=== PATIENT | male | born 1945 | race Caucasian/White ===

== ENCOUNTER → 2017-04-13 | Outpatient (CLI) | payer BC ==
[~2017-04-13] MED LIST: ASPEC325 PO; B-COCAP2 PO; CHL4 PO; CHOLTAB3 PO; CMD5 PO; CMD75 PO; CZR50 PO; GLC5 PO; GLC500 PO; LPR25 PO; MELO7.5T5 PO; MULT-506 PO; OMEG10007 PO; PANT40TA PO; TAMS0.4C59 PO; TOLT1TAB PO; cinnamon PO; flax seed oil PO; osteobiflex PO
[2017-04-13 13:30] LABS: MEAN CELL VOLUME 97.8 fL (80-100); MEAN CORPUSCULAR HGB CONC 31.7 g/dl (32-36); RED BLOOD COUNT 3.58 M/uL (4.7-6.1); WHITE BLOOD COUNT 2.73 K/uL (4.8-10.8)
[2017-04-13 13:33] LABS: MEAN PLATELET VOLUME 11.3 fL (7.4-10.4); PLATELET COUNT 75 K/uL (130-400)
[2017-04-13 13:54] LABS: BASO % 0.7 %; BASO ABS # 0.02 K/uL (0-0.2); COMPLETE YES; EOS % 3.3 %; LYMPH % 41.8 %; LYMPH ABS # 1.14 K/uL (1.2-3.4); MONO % 6.2 %
== END | disposition home or self-care (01) ==
LOC: C.LABMFLN 11:25
PROVIDERS: ATTEND Internal Medicine Hematology & Oncology
DX: D61.818 Other pancytopenia (principal)

== ENCOUNTER → 2017-09-10 | Outpatient (CLI) | payer BC ==
[~2017-09-10] MED LIST changes: -TOLT1TAB PO; +TOLT1TAB17 PO
[2017-09-10 18:44] LABS: ALT/SGPT 25 U/L (12-78); BLOOD UREA NITROGEN 21 mg/dl (7-18); CALCIUM 8.7 mg/dl (8.5-10.1); CARBON DIOXIDE 25 mmol/L (21-32); CHLORIDE 105 mmol/L (98-107); CREATININE 1.52 mg/dl (0.60-1.40); GLUCOSE 211 mg/dl (70-99); POTASSIUM 4.6 mmol/L (3.5-5.1); SODIUM 136 mmol/L (136-145)
[2017-09-10 18:46] LABS: ALB/GLOB RATIO 0.8 (0.9-2); ALKALINE PHOSPHATASE 41 U/L (45-117); AST/SGOT 16 U/L (15-37)
[2017-09-10 20:39] LABS: HEMATOCRIT 32.8 % (42-52); MEAN CELL VOLUME 96.5 fL (80-100); MEAN CORPUSCULAR HEMOGLOBIN 31.8 pg (25-34); MEAN CORPUSCULAR HGB CONC 32.9 g/dl (32-36); MEAN PLATELET VOLUME 12.1 fL (7.4-10.4); PLATELET COUNT 71 K/uL (130-400); WHITE BLOOD COUNT 3.04 K/uL (4.8-10.8)
[2017-09-10 20:40] LABS: BASO ABS # 0.08 K/uL (0-0.2); BASOPHIL % 2.7 % (0-2); COMPLETE YES; GIANT PLATELETS 1+; LARGE GRANULAR LYMPH ABSOLUTE 0.54 K/uL; LARGE GRANULAR LYMPHOCYTE % 17.7 %; LYMPHOCYTE % 36.2 %; NEUTROPHILS % 33.6 %; PLT ESTIMATE DECREASED
== END | disposition home or self-care (01) ==
LOC: C.LABMFLN 13:13
PROVIDERS: ATTEND Internal Medicine Hematology & Oncology
DX: D61.818 Other pancytopenia (principal)

== ENCOUNTER → 2017-09-10 | Outpatient (CLI) | payer BC ==
--- NOTE | 2017-09-10 12:42 | DIAGNOSTIC IMAGING REPORT ---
ULTRASOUND OF THE CAROTID ARTERIES CLINICAL HISTORY: CAROTID BRUIT COMPARISON STUDY: None. TECHNIQUE: Real-time, grayscale, and color Doppler sonography of the carotid arteries was performed. Imaging reviewed in the transverse and longitudinal planes. NASCET criteria was utilized for stenosis calcification. FINDINGS: There is moderate atherosclerotic plaque present bilateral. The peak systolic velocity within the right internal carotid artery is 142 cm/sec. The systolic velocity ratio of right internal to common carotid artery is 1.9. The peak systolic velocity within the left internal carotid artery is 189 cm/sec. The systolic velocity ratio left internal to common carotid artery is 1.6. Antegrade flow is seen in the vertebral arteries. The external carotid arteries are patent. Blood pressure in the right arm measured 130 mm/Hg. Blood pressure in the left arm measured 134 mm/Hg. IMPRESSION: Moderate bilateral atheromatous changes. 50-69% bilateral internal carotid artery stenosis by peak systolic velocity criteria. The ICA/CCA peak systolic ratios are not however elevated, a finding which suggests less than 50% stenoses bilaterally. If a more accurate stenosis measurement is desired, CT angiography could be obtained in follow-up. Electronically signed by: Isra Valdez M.D. 09/10/2017 12:40 PM Dictated Date/Time: 09/10/2017 12:36 PM
== END | disposition home or self-care (01) ==
LOC: C.ULTR 11:42
PROVIDERS: ATTEND Family Medicine
DX: I65.23 Occlusion and stenosis of bilateral carotid arteries (principal); R09.89 Other specified symptoms and signs involving the circulatory and respiratory systems

== ENCOUNTER → 2017-11-28 | Outpatient (CLI) | payer BC ==
[2017-11-28 12:19] LABS: HEMATOCRIT 34.4 % (42-52); HEMOGLOBIN 11.4 g/dL (14.0-18.0); MEAN CELL VOLUME 95.3 fL (80-100); MEAN CORPUSCULAR HEMOGLOBIN 31.6 pg (25-34); MEAN CORPUSCULAR HGB CONC 33.1 g/dl (32-36); RED CELL DISTRIBUTION WIDTH CV 14.8 % (11.5-14.5); WHITE BLOOD COUNT 3.08 K/uL (4.8-10.8)
[2017-11-28 12:32] LABS: MEAN PLATELET VOLUME 10.9 fL (7.4-10.4); PLATELET COUNT 92 K/uL (130-400)
[2017-11-28 12:47] LABS: BASO % 0.3 %; BASO ABS # 0.01 K/uL (0-0.2); EOS % 3.2 %; IG# 0.01 K/uL (0.00-0.02); LYMPH % 37.7 %; LYMPH ABS # 1.16 K/uL (1.2-3.4); MONO % 7.1 %; MONO ABS # 0.22 K/uL (0.11-0.59); NEUT % 51.4 %; NEUT ABS # 1.58 K/uL (1.4-6.5)
[2017-11-28 13:05] LABS: ALBUMIN 3.5 gm/dl (3.4-5.0); ALT/SGPT 27 U/L (12-78); BLOOD UREA NITROGEN 22 mg/dl (7-18); CALCIUM 8.7 mg/dl (8.5-10.1); CARBON DIOXIDE 26 mmol/L (21-32); CREATININE 1.47 mg/dl (0.60-1.40); GLUCOSE 250 mg/dl (70-99); POTASSIUM 4.7 mmol/L (3.5-5.1); SODIUM 136 mmol/L (136-145)
[2017-11-28 13:08] LABS: ALKALINE PHOSPHATASE 84 U/L (45-117); AST/SGOT 19 U/L (15-37); TOTAL PROTEIN 7.5 gm/dl (6.4-8.2)
== END | disposition home or self-care (01) ==
LOC: C.LABMFLN 10:11
PROVIDERS: ATTEND Urology
DX: D61.818 Other pancytopenia (principal); C61 Malignant neoplasm of prostate

== ENCOUNTER → 2018-01-23 | Outpatient (CLI) | payer BC ==
[2018-01-23 12:45] LABS: HEMATOCRIT 37.2 % (42-52); HEMOGLOBIN 12.1 g/dL (14.0-18.0); MEAN CELL VOLUME 96.6 fL (80-100); MEAN CORPUSCULAR HEMOGLOBIN 31.4 pg (25-34); MEAN CORPUSCULAR HGB CONC 32.5 g/dl (32-36); RED CELL DISTRIBUTION WIDTH CV 15.5 % (11.5-14.5); RED CELL DISTRIBUTION WIDTH SD 54.4 fL (36.4-46.3); WHITE BLOOD COUNT 3.34 K/uL (4.8-10.8)
[2018-01-23 12:51] LABS: BASO % 0.9 %; BASO ABS # 0.03 K/uL (0-0.2); EOS % 2.7 %; EOS ABS # 0.09 K/uL (0-0.5); IG# 0.01 K/uL (0.00-0.02); LYMPH % 40.4 %; LYMPH ABS # 1.35 K/uL (1.2-3.4); MEAN PLATELET VOLUME 11.5 fL (7.4-10.4); MONO % 7.5 %; MONO ABS # 0.25 K/uL (0.11-0.59); NEUT % 48.2 %; NEUT ABS # 1.61 K/uL (1.4-6.5); PLATELET COUNT 82 K/uL (130-400)
[2018-01-23 15:44] LABS: ALBUMIN 3.6 gm/dl (3.4-5.0); ALT/SGPT 31 U/L (12-78); AST/SGOT 24 U/L (15-37); BLOOD UREA NITROGEN 22 mg/dl (7-18); CARBON DIOXIDE 26 mmol/L (21-32); CREATININE 1.48 mg/dl (0.60-1.40); GLUCOSE 200 mg/dl (70-99); POTASSIUM 4.8 mmol/L (3.5-5.1); SODIUM 136 mmol/L (136-145)
[2018-01-23 15:47] LABS: ALKALINE PHOSPHATASE 52 U/L (45-117); TOTAL PROTEIN 7.7 gm/dl (6.4-8.2)
== END | disposition home or self-care (01) ==
LOC: C.LABMFLN 10:17
PROVIDERS: ATTEND Internal Medicine Hematology & Oncology
DX: D61.818 Other pancytopenia (principal)

== ENCOUNTER → 2018-05-02 | Outpatient (CLI) | payer BC ==
[2018-05-02 18:10] LABS: HEMATOCRIT 33.7 % (42-52); HEMOGLOBIN 10.8 g/dL (14.0-18.0); MEAN CELL VOLUME 100.9 fL (80-100); MEAN CORPUSCULAR HEMOGLOBIN 32.3 pg (25-34); MEAN PLATELET VOLUME 12.2 fL (7.4-10.4); PLATELET COUNT 77 K/uL (130-400); RED CELL DISTRIBUTION WIDTH CV 16.3 % (11.5-14.5); RED CELL DISTRIBUTION WIDTH SD 60.8 fL (36.4-46.3); WHITE BLOOD COUNT 2.84 K/uL (4.8-10.8)
[2018-05-02 18:28] LABS: BASO % 0.4 %; BASO ABS # 0.01 K/uL (0-0.2); EOS % 2.5 %; EOS ABS # 0.07 K/uL (0-0.5); IG# 0.01 K/uL (0.00-0.02); LYMPH % 40.8 %; LYMPH ABS # 1.16 K/uL (1.2-3.4); NEUT % 48.9 %; NEUT ABS # 1.39 K/uL (1.4-6.5)
== END | disposition home or self-care (01) ==
LOC: C.LABMFLN 11:09
PROVIDERS: ATTEND Internal Medicine Hematology & Oncology
DX: D61.818 Other pancytopenia (principal)

== ENCOUNTER 2020-03-27 18:02 | Inpatient (IN) ==
[2020-03-27] MEDS ORDERED: methylPREDNISolone 125 MG/2 ML VIAL IV STA (18:16)
[2020-03-27] MEDS ORDERED: LABETALOL HCL IV 5 MG/ML 20ML IV PRN (18:16)
[2020-03-27] MEDS ORDERED: HydrALAZINE HCL 20 MG/ML VIAL IV PRN (18:16)
[2020-03-27] MEDS ORDERED: SODIUM CHLORIDE 0.9% 1000ML 1,000 ML IV ONE (18:16)
[2020-03-27] MEDS ORDERED: FAMOTIDINE 20 MG in SYRINGE 3 ML IV STA (18:16)
[2020-03-27] MEDS ORDERED: DiphenhydrAMINE HCL 50 MG/ML VIAL IV STA (18:16)
[2020-03-27] MEDS ORDERED: ONDANSETRON INJ 2 MG/ML 2 ML VIAL IV STA (18:19)
[2020-03-27 18:32] LABS: Hematocrit (blood only) 36.5 % (42-52); Hemoglobin 11.5 g/dL (14.0-18.0); Mean Corpuscular Hemoglobin 31.3 pg (25-34); Mean Corpuscular Hgb Conc 31.5 g/dL (32-36); Mean Corpuscular Volume 99.5 fL (80-100); RDW Coefficient of Variation 14.9 % (11.5-14.5); RDW Standard Deviation 53.8 fL (36.4-46.3); Red Blood Count 3.67 M/uL (4.7-6.1); White Blood Count 2.72 K/uL (4.8-10.8)
[2020-03-27] MEDS ORDERED: OPTIRAY 320 125ml IV PRN (18:34)
--- NOTE | 2020-03-27 18:34 | CT Scan Report ---
CT head/brain wo con CT DOSE: 537.48 mGy.cm HISTORY: Mental status change Stroke evaluation TECHNIQUE: Multiaxial CT images of the head were performed without the use of intravenous contrast. A dose lowering technique was utilized adhering to the principles of ALARA. Comparison: None. Findings: The paranasal sinuses and mastoid air cells are clear. Possible small subacute left frontal infarct. Density characteristics of the cerebellar as well as cerebral hemispheres are otherwise unremarkable. Ventricular system is midline. There is no evidence for acute intracranial hemorrhage. Impression: Small left frontal lobe infarct, possibly subacute to chronic although old images are not available f or comparison. Otherwise negative study. ACT 112: Negative or not required by law. The above report was generated using voice recognition software. It may contain grammatical, syntax or spelling errors. Electronically signed by: Alfred Rao M.D. 03/27/2020 6:32 PM
[2020-03-27] MEDS ORDERED: MAGNESIUM SULFATE 1GM / D5W BAG IV ONE (18:38)
[2020-03-27] MEDS ORDERED: MAGNESIUM SULFATE / D5W 1 GM/100 ML BAG IV STA (18:38)
[2020-03-27] MEDS ORDERED: ACETAMINOPHEN 1,000 MG/100 ML VIAL IV STA (18:39)
[2020-03-27 18:43] LABS: INR 2.3 (0.9-1.1); Partial Thromboplastin Ratio 1.3; Partial Thromboplastin Time 35.6 Seconds (21.0-31.0); Prothrombin Time 23.6 Seconds (9.0-12.0)
[2020-03-27 18:50] LABS: Alanine Aminotransferase 23 U/L (12-78); Albumin Level 3.7 gm/dl (3.4-5.0); Aspartate Aminotransferase 17 U/L (15-37); BUN Creatinine Ratio 15.9 (10-20); Blood Urea Nitrogen 24 mg/dl (7-18); Calcium 9.1 mg/dl (8.5-10.1); Carbon Dioxide 22 mmol/L (21-32); Chloride 110 mmol/L (98-107); Creatinine Clr Calc Pharmacy 44.5 ml/min; Est GFR (African American) 53.1; Est GFR (Non-African American) 45.9; Glucose 232 mg/dl (70-99); Magnesium 1.7 mg/dl (1.8-2.4); Potassium 4.8 mmol/L (3.5-5.1); Sodium 141 mmol/L (136-145)
[2020-03-27 18:55] LABS: Albumin Globulin Ratio 0.9 (0.9-2); Alkaline Phosphatase 48 U/L (45-117); Bilirubin,Total 0.7 mg/dl (0.2-1); Globulin 4.1 gm/dl (2.5-4.0); Mean Platelet Volume 11.5 fL (7.4-10.4); Platelet Count 75 K/uL (130-400); Total Protein 7.8 gm/dl (6.4-8.2); Troponin I < 0.015 ng/ml (0-0.045)
[2020-03-27 18:58] LABS: Basophils # (auto) 0.02 K/uL (0-0.2); Basophils % (auto) 0.7 %; Eosinophils # (auto) 0.02 K/uL (0-0.5); Eosinophils % (auto) 0.7 %; Immature Granulocytes # (auto) 0.01 K/uL (0.00-0.02); Immature Granulocytes % (auto) 0.4 %; Lymphocytes # (auto) 0.72 K/uL (1.2-3.4); Lymphocytes % (auto) 26.5 %; Monocytes # (auto) 0.08 K/uL (0.11-0.59); Monocytes % (auto) 2.9 %; Neutrophils # (auto) 1.87 K/uL (1.4-6.5); Neutrophils % (auto) 68.8 %
--- NOTE | 2020-03-27 18:59 | CT Scan Report ---
CT angio neck with con HISTORY: Mental status change Stroke evaluation TECHNIQUE: Multiaxial CT angiography of the neck was performed IV contrast: 115 cc nonionic All jose urements were calculated based on NASCET criteria. Maximum intensity projection images were also obt ained. A dose lowering technique was utilized adhering to the principles of ALARA. COMPARISON STUDY: Carotid Doppler 03/20/2019 FINDINGS: Considerable plaque formation at the carotid bifurcations bilaterally. 50% narrowing right carotid bifurcation and proximal right internal carotid artery. 50% narrowing origin left internal carotid artery. Suggestion of a small focus of dissection transaxi al image 201. This may be associated with a small anterior superficial ulcerative plaque. The vertebr al basilar system demonstrates multifocal 70-80 narrowing of the left vertebral artery. This is at it s origin and at the level of the C7 vertebral body. The right vertebral shows moderate multifocal atherosclerotic narrowing foci. It is small in caliber compared to the left presumably on a congenital basis. There is a high degree of the distal right vertebral stenotic change. IMPRESSION: 1. Considerable plaque formation bilaterally involving vertebral as well as carotid systems. 2. 50% narrowing right carotid bifurcation and proximal right internal carotid artery. 3. 50 % origin left internal carotid artery with a small focal area of what is potentially dissection transaxial image 201. 4. Possible small associated anterior superficial ulcerative plaque. 5. Multifocal moderate to high degree of stenotic change of the vertebral vessels bilaterally. ACT 112: Negative or not required by law. The above report was generated using voice recognition software. It may contain grammatical, syntax or spelling errors. Electronically signed by: Alfred Rao M.D. 03/27/2020 6:57 PM
--- NOTE | 2020-03-27 19:02 | CT Scan Report ---
CT angio head w con HISTORY: Mental status change Stroke evaluation TECHNIQUE: Multiaxial CT angiography of the head was performed IV contrast: 120 cc nonionic Maximu m intensity projection images were also obtained. A dose lowering technique was utilized adhering to the principles of ALARA. COMPARISON: None FINDINGS: Evaluation of the intracranial vasculature demonstrates anterior and middle cerebral vascul ature to be unremarkable. The right vertebral artery is small in caliber with evidence for distal stenotic change. There are findings of mild to moderate multifocal narrowing of the posterior cerebral circulation. A high grade or critical stenosis is not seen. IMPRESSION: 1. No evidence for a critical stenotic process of the intracranial vasculature. 2. Mild to moderate multifocal narrowing of the components of the posterior cerebral circulation exam with no major critical stenosis. 3. High degree of narrowing of the distal right vertebral artery. ACT 112: Negative or not required by law. The above report was generated using voice recognition software. It may contain grammatical, syntax or spelling errors. Electronically signed by: Alfred Rao M.D. 03/27/2020 7:01 PM
--- NOTE | 2020-03-27 19:03 | XRay Report ---
XR chest 1V portable CLINICAL HISTORY: Pt c/o severe dizziness dyspnea COMPARISON STUDY: No previous studies for comparison. FINDINGS: Mild interstitial prominence left mid to lower lung. Lungs otherwise are clear. No focal or consolidative infiltrates. Diaphragms are smooth. IMPRESSION: Mild left hemithoracic parenchymal interstitial prominence. Otherwise negative chest. ACT 112: Negative or not required by law. The above report was generated using voice recognition software. It may contain grammatical, syntax or spelling errors. Electronically signed by: Alfred Rao M.D. 03/27/2020 7:02 PM
[2020-03-27] MEDS ORDERED: PHARMACIST DISCHARGE MED REC CONSULT PRN (19:53)
[2020-03-27] MEDS ORDERED: GLUCOSE 10 TABS/TUBE PO PRN (20:01)
[2020-03-27] MEDS ORDERED: ONDANSETRON INJ 2 MG/ML 2 ML VIAL IV PRN (20:01)
[2020-03-27] MEDS ORDERED: GLUCOSE 40% GEL 15 GM TUBE PO PRN (20:01)
[2020-03-27] MEDS ORDERED: ACETAMINOPHEN 325 MG TAB PO PRN (20:01)
[2020-03-27] MEDS ORDERED: DEXTROSE 50% 50 ML SYRINGE IV PRN (20:01)
[2020-03-27] MEDS ORDERED: CARBOHYDRATES FOR HYPOGLYCEMIA PO PRN (20:01)
[2020-03-27] MEDS ORDERED: GLUCAGON FOR INJ 1 MG VIAL SQ PRN (20:01)
[2020-03-27] MEDS ORDERED: DC ALL PREVIOUSLY ORDERED DIABETES MEDS ONE (20:01)
--- NOTE | 2020-03-27 20:47 | History & Physical Report ---
Date of Service March 27, 2020 Assessment & Plan Admission and Anticipated Discharge Date Admission Date: Patient is a 74 year old man with a PMH of 3 prior CVA's, Panyctopenia of unclear origin, Factor V Leiden, DMII and hypertension who is here with dizziness vomiting and multiple falls. CVA CT showing small subacute infarct in left frontal lobe. Neuro exam normal apart from continued dizziness, no nystagmus present Patient already on ASA and warfarin, has been on multiple different statins none of which he could tolerate and all of which dramatically raised his CK Will continue ASA and warfarin at this time discussed risks vs benefits with patient and . Brain MRI pending Patient did receive contrast scans as well showing stenosis of bilateral carotid and vertebral systems A1C and lipid panel ordered Admitting to [facility] neurology consulted Shaking/shivering Patient feels quit cold and has started shaking since his CT scan. Per ED provider this was not present initially. Most likely cause is secondary to his premedication with steoids to receiving IV contrast that he is allergic to. VItals all WNL, no other evidence of infection will continue to monitor vitals closely with patients previous history of anaphylaxis. Pancytopenia Unclear cause, has received bone marrow biopsy previously, though possibly secondary to his liver failure Continuing home iron, Low threshold to start antibiotics if we suspect infection Hypertension Holding home antihypertensives in setting of likely acute CVA Will allow permissive HTN PRN hydralazine for systolic pressure >220 or diastolic >120 Factor V Leiden Will continue warfarin on review of literature appears to be safer to continue warfarin despite risk of hemorrhagic conversion than discontinue in setting of acute ischemic stroke DMII SLiding scale Holding home hypoglycemic medications Hypomagnesemia Received one gram MgSO4 in ED Will continue home Mag Ox supplmentation Dispo: Telemetry pending MRI and neurology evaluation. F/E/N: NSS 90 mls/hour NPO DVT PPx: Coumadin History of Present Illness Chief Complaint: Dizziness Nuasea and VOmiting Primary Care Provider: Lisbeth Huggins MD Vlad Etienne is a 74 year old man with a past medical history significant for 3 prior ischemic strokes, Factor V Leiden on Warfarin, Pancytopenia, DMII, Hypertension, JONES who presents with a 7 hour history of dizziness falls and nausea. At around noon he was sitting on his toilet when he felt suddently dizzy. He does not feel like the room was spinning but rather that he was off balance and "right felt like left".He fell off of his toilet, vomited several times and tried to get up and make his way back to his bed. He suffered three more falls en route and finally got to his bed. He denies any loss of consciousness or hitting his head during any of these falls. Sometime later he told his what happened and after some bargaining back and forth he agreed to let her call an ambulance. He's vomited now about four times he tells me. On presentation to ED he was found to have vitals WNL apart from some hypertension and be in his usual state of health except for continued dizziness that is somewhat better than it was earlier. CT of the head showing possible subacute stroke of the left frontal lobe CTA of the head and neck showing considerable plaque formation in carotid and vertebral systems bilaterally, 50% stenosis of left carotid with what could be a small area of dissection, Possible small associated anterior superficial ulcerative plaque and Multifocal moderate to high degree of stenotic change of the vertebral vessels bilaterally. Orbit X ray and MRI brain pending. labwork was significant for low WBC of 2.72, hemoglobin of 11.5, and platelets of 75. INR was 2.3 Patient was slightly hypomagnesemic 1.7 and had an elevated creatinine near his baseline of 1.52. He was feeling very cold and shivering but he tells me he gets like this all the time. He denies any other recent symptoms other than impacted ear wax in his left ear. Denies fevers, chills, sweats, fatigue, headache, shortness of breath, chest pain, nausea or vomiting before noon. He has not had any recent infections or sick contacts that he is aware of. Allergies Allergy/AdvReac Type Severity Reaction Status Date / Time bee venom protein (honey bee) Allergy Severe Anaphylaxis Verified 03/27/20 20:09 Iodinated Contrast Media Allergy Severe Anaphylaxis Verified 03/27/20 19:47 [Iodinated Contrast- Oral and IV Dye] meperidine AdvReac Intermediate Hallucinati Verified 03/27/20 19:47 ng Home Medications Home Medications Medication Instructions Recorded Confirmed Type Osteo Bi-Flex Triple Strength 1 tab PO BID 09/19/18 03/27/20 History acetaminophen 650 mg PO QAM 09/19/18 03/27/20 History aspirin 325 mg PO HS 09/19/18 03/27/20 History ferrous sulfate [Iron (ferrous 325 mg PO BID 09/19/18 03/27/20 History sulfate)] gabapentin 300 mg PO HS 09/19/18 03/27/20 History glipizide 10 mg PO BID 09/19/18 03/27/20 History losartan 50 mg PO QAM 09/19/18 03/27/20 History magnesium oxide 400 mg PO QAM 09/19/18 03/27/20 History metformin 1,000 mg PO BID 09/19/18 03/27/20 History metoprolol tartrate 12.5 mg PO BID 09/19/18 03/27/20 History multivitamin 1 tab PO QAM 09/19/18 03/27/20 History pantoprazole 40 mg PO QAM 09/19/18 03/27/20 History tamsulosin 0.4 mg PO BID 09/19/18 03/27/20 History vitamin B complex 1 tab PO QAM 09/19/18 03/27/20 History warfarin 2.5 mg PO 2XWK 09/19/18 03/27/20 History warfarin 5 mg PO 5XWK 09/19/18 03/27/20 History alogliptin 12.5 mg tablet 12.5 mg PO QAM #90 tab 05/20/19 03/27/20 Rx ascorbic acid (vitamin C) [Vitamin 500 mg PO QAM 03/27/20 03/27/20 History C] cholecalciferol (vitamin D3) 125 mcg PO QAM 03/27/20 03/27/20 History [Vitamin D3] cinnamon bark [Cinnamon] 500 mg PO BID 03/27/20 03/27/20 History epinephrine [EpiPen] 0.3 mg IM DIRECTED PRN 03/27/20 03/27/20 History loperamide 2 mg PO QAM 03/27/20 03/27/20 History loperamide See Rx Instructions .ROUTE 03/27/20 03/27/20 History .COMPLEX PRN Past Med/Surg History Social History Preferred Language: Indian Communication Ability: Effective Pallet Repairer Required: No Beliefs That Will Affect Care: None Current Living Situation: Spouse Other Information That Helps Us Care for You: No Feels Safe at Home: Yes Safety Concerns: Feels Safe At This Time Smoking Status: Former smoker Do You Dip or Chew Tobacco: No ; Second Hand Exposure: No ; Hx Alcohol Use: No Hx Substance Use: No Review of Systems Review of Systems: All systems reviewed & are unremarkable except as noted in HPI & below Physical Exam Physical Exam: Constitutional: Constitutional: WD/WN, vitals as above no acute distress Eyes: PERRL, conjunctivae normal, anicteric sclerae ENMT: external ear and nose normal, oropharynx normal Respiratory: normal respiratory effort, lungs clear to auscultation Cardiovascular: RRR, no murmur, no edema Extremities: no calf tenderness and no pedal edema Gastrointestinal (Abdomen): normal bowel sounds, soft, nontender, no hepatosplenomegaly Skin: no rashes, warm and dry Neurologic: patellar DTR's 2+ bilat, sensation intact CN's II-XI intact bilaterally Cranial Nerves II-XII intact bilaterally, patient with some asymmetry in eye opening at rest bilaterally but patient and do not seem to think it's very abnormal for him and he has had surgery on his eyes in the past for this. Results & Data Results & Data ([facility]) Vital Signs (Past 12 Hours) Vital Signs Temp Pulse Pulse Resp BP BP Pulse Ox 03/27/20 18:45 89 17 167/79 H 98 03/27/20 18:38 91 H 90 17 174/83 H 174/83 H 98 03/27/20 18:04 36.5 C 91 H 19 197/81 H 98 Code Status & VTE Plan VTE Prophylaxis Plan VTE Prophylaxis will be ordered: Yes Supervising Physician Co-Signing Physician Notes Patient seen and examined, chart reviewed, case discussed with Dr. Santos and I agree with his assessment and plan as above. Briefly, patient is a 74yo C male with history of vascular stenosis - carotid, vertebrobasilar insufficiency, prior CVA x 3, HTN/HLP/Factor V and DM. He presents today after an episode of vertigo/imbalance that occurred while on the commode - patient states he was straining at the time. Physical exam unremarkable - no neurological deficits noted HTN within parameters for permissive HTN as we rule out acute CVA Labs and images reviewed MRI does not suggest acute CVA Assessment/Plan: -Admit to medical floor with telemetry -Continue ASA, Coumadin -No statin due to intolerance -Neurology assistance per protocol appreciated -Suspect shaking secondary to steroid treatment and contrast dye. This resolved by the time I evaluated him -Remainder of plan as above Resident Activity Tracking Resident Involvement: Resident Care Provided Care Provided: Adult Hospital Medicine
[2020-03-27] MEDS ORDERED: NON-FORMULARY MEDICATION (Cinnamon Bark [Cinnamon] 500 MG) PO SCH (21:38)
[2020-03-27] MEDS ORDERED: GLUCOSAM CHON MSM1 C MANG BOSW PO SCH (21:38)
[2020-03-27] MEDS ORDERED: ASPIRIN 325 MG ECTAB PO SCH (22:00)
[2020-03-27] MEDS: TAMSULOSIN HCL 0.4 MG CAP PO SCH (22:35)
[2020-03-27] MEDS: INSULIN ASPART 100 UNITS/ML 3 ML PEN SC SCH (22:37)
[2020-03-27] MEDS: SODIUM CHLORIDE 0.9% 1000ML 1,000 ML IV SCH (22:40)
[2020-03-27] MEDS ORDERED: GABAPENTIN 300 MG CAP PO SCH (23:00)
[2020-03-27] MEDS ORDERED: WARFARIN SOD 5 MG TAB PO SCH (23:00)
--- NOTE | 2020-03-27 23:15 | Emergency Department Note ---
History of Present Illness General Chief complaint: Abdominal Pain Stated complaint: VOMITING, ABD PAIN Time Seen by Provider: 03/27/20 18:09 Source: patient, family (), RN notes reviewed and old records reviewed Mode of arrival: ambulatory Limitations: no limitations History of Present Illness Provider complaint: severe dizziness, emesis Onset (ago): hour(s) 6 Location: head Radiation: non-radiation Severity: mild Pain Consistency: + constant Current Pain Intensity: 0 Relieved By: + immobilization Exacerbated By: + movement Associated symptoms: + nausea/vomiting Treatments prior to arrival: none This is a 74-year-old male who presents emergency department with severe dizziness. The patient reports he was sitting on the toilet approximately 6 hours ago and using his phone when he became severely dizzy to the point that he was vomiting and unable to walk. If the patient stands he has no length of balance and immediately falls. He fell 3 times prior to arrival to the emergency department. He denies any injuries from the falls. 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 Home Medications Home Medications Medication Instructions Recorded Confirmed Type Osteo Bi-Flex Triple Strength 1 tab PO BID 09/19/18 03/27/20 History acetaminophen 650 mg PO QAM 09/19/18 03/27/20 History aspirin 325 mg PO HS 09/19/18 03/27/20 History ferrous sulfate [Iron (ferrous 325 mg PO BID 09/19/18 03/27/20 History sulfate)] gabapentin 300 mg PO HS 09/19/18 03/27/20 History glipizide 10 mg PO BID 09/19/18 03/27/20 History losartan 50 mg PO QAM 09/19/18 03/27/20 History magnesium oxide 400 mg PO QAM 09/19/18 03/27/20 History metformin 1,000 mg PO BID 09/19/18 03/27/20 History metoprolol tartrate 12.5 mg PO BID 09/19/18 03/27/20 History multivitamin 1 tab PO QAM 09/19/18 03/27/20 History pantoprazole 40 mg PO QAM 09/19/18 03/27/20 History tamsulosin 0.4 mg PO BID 09/19/18 03/27/20 History vitamin B complex 1 tab PO QAM 09/19/18 03/27/20 History warfarin 2.5 mg PO 2XWK 09/19/18 03/27/20 History warfarin 5 mg PO 5XWK 09/19/18 03/27/20 History alogliptin 12.5 mg tablet 12.5 mg PO QAM #90 tab 05/20/19 03/27/20 Rx ascorbic acid (vitamin C) [Vitamin 500 mg PO QAM 03/27/20 03/27/20 History C] cholecalciferol (vitamin D3) 125 mcg PO QAM 03/27/20 03/27/20 History [Vitamin D3] cinnamon bark [Cinnamon] 500 mg PO BID 03/27/20 03/27/20 History epinephrine [EpiPen] 0.3 mg IM DIRECTED PRN 03/27/20 03/27/20 History loperamide 2 mg PO QAM 03/27/20 03/27/20 History loperamide See Rx Instructions .ROUTE 03/27/20 03/27/20 History .COMPLEX PRN Allergies Allergy/AdvReac Type Severity Reaction Status Date / Time bee venom protein (honey bee) Allergy Severe Anaphylaxis Verified 03/27/20 20:09 Iodinated Contrast Media Allergy Severe Anaphylaxis Verified 03/27/20 19:47 [Iodinated Contrast- Oral and IV Dye] meperidine AdvReac Intermediate Hallucinati Verified 03/27/20 19:47 ng Past Med/Surg History Social History Preferred Language: Icelandic Communication Ability: Effective Newspaper Or Periodical Editor Required: No Beliefs That Will Affect Care: None Current Living Situation: Spouse Other Information That Helps Us Care for You: No Feels Safe at Home: Yes Safety Concerns: Feels Safe At This Time Smoking Status: Former smoker Do You Dip or Chew Tobacco: No ; Second Hand Exposure: No ; Hx Alcohol Use: No Hx Substance Use: No Review of Systems A total of 10 systems reviewed and were otherwise negative Physical Exam Vital Signs Vital Signs - 24 hr 03/27/20 18:04 03/27/20 18:38 03/27/20 18:45 Temperature 36.5 C Temperature Source Oral Pulse Rate 91 H 91 H 89 Pulse Rate [Apical] 90 Pulse Rate from SpO2 Sensor 91 H 89 Pulse Rhythm [Apical] Regular Respiratory Rate 19 17 17 Respiratory Effort / Characteristics Non-Labored Spontaneous Respiratory Depth Normal Blood Pressure 197/81 H 174/83 H 167/79 H Blood Pressure [Left Arm] 174/83 H Blood Pressure Mean 119 120 93 Blood Pressure Mean [Left Arm] 113 Pulse Oximetry 98 98 98 Oxygen Delivery Method Room Air Room Air Sepsis Recent Fever Within 48 Hours No Sepsis Action Taken by Nursing No Action Required 03/27/20 19:00 03/27/20 19:01 03/27/20 19:30 Temperature Temperature Source Pulse Rate 87 87 84 Pulse Rate [Apical] Pulse Rate from SpO2 Sensor 87 87 85 Pulse Rhythm [Apical] Respiratory Rate 17 Respiratory Effort / Characteristics Respiratory Depth Blood Pressure 166/79 H Blood Pressure [Left Arm] Blood Pressure Mean 98 Blood Pressure Mean [Left Arm] Pulse Oximetry 95 97 97 Oxygen Delivery Method Sepsis Recent Fever Within 48 Hours Sepsis Action Taken by Nursing 03/27/20 19:56 03/27/20 20:00 Temperature Temperature Source Pulse Rate 88 Pulse Rate [Apical] Pulse Rate from SpO2 Sensor 88 Pulse Rhythm [Apical] Respiratory Rate 17 Respiratory Effort / Characteristics Respiratory Depth Blood Pressure 161/90 H 166/77 H Blood Pressure [Left Arm] Blood Pressure Mean 98 110 Blood Pressure Mean [Left Arm] Pulse Oximetry 97 Oxygen Delivery Method Sepsis Recent Fever Within 48 Hours Sepsis Action Taken by Nursing VITAL SIGNS - Vital signs and nursing notes were reviewed. GENERAL - 74-year-old male appearing stated age who is in no acute distress. Communicates well with provider and answers questions appropriately. SKIN - Without rashes. HEAD - NC/AT. EYES - PERRL with EOMI bilaterally. Sclera anicteric. Palpebral conjunctiva pink and moist with no injection noted. EARS - No deformities of external structures noted on gross examination bilaterally. No pain elicited with palpation of the tragus bilaterally. External auditory canals without discharge or otorrhea. Tympanic membranes pearly koch without retraction or bulging. No fluid or purulent material visualized behind the TM. Handle of malleus, umbo, cone of light, pars tensa/flaccid all easily visualized. NOSE - Midline and without cyanosis. No epistaxis or purulent drainage noted. Septum midline without deviation or septal hematoma noted. MOUTH/OROPHARYNX - Without perioral cyanosis. Buccal mucosa pink and moist and without leukoplakia. Tongue midline with equal elevation of palate bilaterally. No tonsillar hypertrophy, erythema, or exudates noted. dentition noted. NECK - Neck with FROM. Supple to palpation. lymphadenopathy noted. No nuchal rigidity. LUNGS - Chest wall symmetric without accessory muscle use, intercostals retractions, or central cyanosis. Normal vesicular breath sounds CTA B/L. No wheezes, rales, or rhonchi appreciated. CARDIAC - RRR with S1/S2. No murmur, rubs, or gallops appreciated. ABDOMEN - Abdominal contour without pulsations or visible masses. BS normoactive all four quadrants. No tenderness, palpable masses, hepatosplenomegaly, or ascites noted. EXTREMITIES - No clubbing or peripheral cyanosis. No pretibial edema present. +3/5 radial, posterior tibial, and dorsalis pedis pulses palpated throughout. +5/5 strength noted in UE/LE bilaterally. NEUROLOGIC - Cranial nerves II through XII grossly intact. Sensory intact to light touch throughout. Patellar reflexes +2/4. PSYCH - A&Ox3 and cooperates fully with examiner. Pt is very pleasant and interacts well with examiner. Course Administered Medications Aspirin (Ecotrin) 325 mg PO HS [facility] Stop: 04/26/20 21:59 Last Admin: 03/27/20 22:35 Dose: 325 mg Documented by: [id number] Gabapentin (Neurontin) 300 mg PO HS [facility] Stop: 04/26/20 22:59 Last Admin: 03/27/20 22:35 Dose: 300 mg Documented by: [id number] Sodium Chloride (Nss 1000ml) 1,000 mls @ 90 mls/hr IV .Q11H7M [facility] Stop: 04/26/20 20:14 Last Admin: 03/27/20 22:40 Dose: 90 mls/hr Documented by: [id number] Insulin Aspart (Novolog Flexpen) 0 units SC ACHS [facility] Stop: 04/26/20 20:59 Last Admin: 03/27/20 22:37 Dose: 3 units Documented by: [id number] Cosigned by: [id number] Ioversol (Optiray 320 125ml) 119 ml IV ONCE PRN PRN Reason: Interaction Checking Stop: 03/31/20 18:33 Last Admin: 03/27/20 18:35 Dose: 119 ml Documented by: [id number] Tamsulosin HCl (Flomax) 0.4 mg PO BID [facility] Stop: 04/26/20 22:59 Last Admin: 03/27/20 22:35 Dose: 0.4 mg Documented by: [id number] Warfarin Sodium (Coumadin) 5 mg PO [email or web address] [facility] Stop: 04/26/20 22:59 Last Admin: 03/27/20 22:48 Dose: 5 mg Documented by: [id number] Discontinued Medications Diphenhydramine HCl (Benadryl) 50 mg IV NOW STA Stop: 03/27/20 18:17 Last Admin: 03/27/20 18:45 Dose: 50 mg Documented by: [id number] Famotidine 20 mg/ Syringe 5 mls @ 2.5 mls/min IV NOW STA Stop: 03/27/20 18:17 Last Admin: 03/27/20 18:59 Dose: Not Given Documented by: [id number] Sodium Chloride (Nss 1000ml) 1,000 mls @ 999 mls/hr IV .Q1H1M ONE Stop: 03/27/20 19:16 Last Infusion: 03/27/20 19:51 Dose: 0 mls/hr Documented by: [id number] Admin: 03/27/20 18:45 Dose: 999 mls/hr Documented by: [id number] Magnesium Sulfate/Dextrose (Magnesium Sulfate / D5w) 1 gm in 100 mls @ 100 mls/hr IV NOW STA Stop: 03/27/20 19:37 Last Infusion: 03/27/20 19:51 Dose: 0 mls/hr Documented by: [id number] Admin: 03/27/20 18:45 Dose: 100 mls/hr Documented by: [id number] Acetaminophen (Ofirmev) 1,000 mg in 100 mls @ 400 mls/hr IV NOW STA Stop: 03/27/20 18:53 Last Admin: 03/27/20 22:33 Dose: Not Given Documented by: [id number] Magnesium Sulfate/Dextrose (Magnesium Sulfate / D5w) Confirm Administered Dose 1 gm IV .STK-MED ONE Stop: 03/27/20 18:39 Last Admin: 03/27/20 18:46 Dose: Not Given Documented by: [id number] Methylprednisolone (Solumedrol) 125 mg IV NOW STA Stop: 03/27/20 18:17 Last Admin: 03/27/20 18:45 Dose: 125 mg Documented by: [id number] Miscellaneous Information (Dc All Previously Ordered Diabetes Meds) 1 ea N/A ONE ONE Stop: 03/27/20 20:02 Last Admin: 03/27/20 22:33 Dose: 1 ea Documented by: [id number] Ondansetron HCl (Zofran) 4 mg IV NOW STA Stop: 03/27/20 18:20 Last Admin: 03/27/20 18:59 Dose: Not Given Documented by: [id number] Medical Decision Making Differential Diagnosis Infection, dehydration, metabolic abnormality, hypo/hyperglycemia, electrolyte disturbance, anemia, hypoxia, cardiac sources, intracerebral event, toxicologic, neurologic, as well as other pathologies. Medical Records Attestation: I reviewed the patient's medical records. Home Medications Current Medication List: was personally reviewed by me Laboratory Data Attestation: I reviewed the patient's lab results. Result diagrams: 03/27/20 18:23 03/27/20 18:23 Lab Results 03/27/20 03/27/20 03/27/20 Range/Units 18:21 18:23 18:23 WBC 2.72 L (4.8-10.8) K/uL RBC 3.67 L (4.7-6.1) M/uL Hgb 11.5 L (14.0-18.0) g/dL Hct 36.5 L (42-52) % MCV 99.5 (80-100) fL MCH 31.3 (25-34) pg MCHC 31.5 L (32-36) g/dL RDW Std Deviation 53.8 H (36.4-46.3) fL RDW Coeff of Sundar 14.9 H (11.5-14.5) % Plt Count 75 L (130-400) K/uL MPV 11.5 H (7.4-10.4) fL Immature Gran % (Auto) 0.4 % Neut % (Auto) 68.8 % Lymph % (Auto) 26.5 % [place] % (Auto) 2.9 % Eos % (Auto) 0.7 % Baso % (Auto) 0.7 % Neut # (Auto) 1.87 (1.4-6.5) K/uL Lymph # (Auto) 0.72 L (1.2-3.4) K/uL [place] # (Auto) 0.08 L (0.11-0.59) K/uL Eos # (Auto) 0.02 (0-0.5) K/uL Baso # (Auto) 0.02 (0-0.2) K/uL Immature Gran # (Auto) 0.01 (0.00-0.02) K/uL PT 23.6 H (9.0-12.0) Seconds INR 2.3 H (0.9-1.1) APTT 35.6 H (21.0-31.0) Seconds PTT Ratio 1.3 Sodium (136-145) mmol/L Potassium (3.5-5.1) mmol/L Chloride (98-107) mmol/L Carbon Dioxide (21-32) mmol/L Anion Gap (3-11) BUN (7-18) mg/dl Creatinine (0.6-1.4) mg/dl Est Cr Clr Drug Dosing ml/min Est GFR ( Amer) Est GFR (Non-Af Amer) BUN/Creatinine Ratio (10-20) Glucose (70-99) mg/dl POC Glucose 235 H (70-99) mg/dl Calcium (8.5-10.1) mg/dl Magnesium (1.8-2.4) mg/dl Total Bilirubin (0.2-1) mg/dl AST (15-37) U/L ALT (12-78) U/L Alkaline Phosphatase (45-117) U/L Troponin I (0-0.045) ng/ml Total Protein (6.4-8.2) gm/dl Albumin (3.4-5.0) gm/dl Globulin (2.5-4.0) gm/dl Albumin/Globulin Ratio (0.9-2) 06/27/20 Range/Units 18:23 WBC (4.8-10.8) K/uL RBC (4.7-6.1) M/uL Hgb (14.0-18.0) g/dL Hct (42-52) % MCV (80-100) fL MCH (25-34) pg MCHC (32-36) g/dL RDW Std Deviation (36.4-46.3) fL RDW Coeff of Sundar (11.5-14.5) % Plt Count (130-400) K/uL MPV (7.4-10.4) fL Immature Gran % (Auto) % Neut % (Auto) % Lymph % (Auto) % [place] % (Auto) % Eos % (Auto) % Baso % (Auto) % Neut # (Auto) (1.4-6.5) K/uL Lymph # (Auto) (1.2-3.4) K/uL [place] # (Auto) (0.11-0.59) K/uL Eos # (Auto) (0-0.5) K/uL Baso # (Auto) (0-0.2) K/uL Immature Gran # (Auto) (0.00-0.02) K/uL PT (9.0-12.0) Seconds INR (0.9-1.1) APTT (21.0-31.0) Seconds PTT Ratio Sodium 141 (136-145) mmol/L Potassium 4.8 (3.5-5.1) mmol/L Chloride 110 H (98-107) mmol/L Carbon Dioxide 22 (21-32) mmol/L Anion Gap 9.0 (3-11) BUN 24 H (7-18) mg/dl Creatinine 1.50 H (0.6-1.4) mg/dl Est Cr Clr Drug Dosing 44.5 ml/min Est GFR ( Amer) 53.1 Est GFR (Non-Af Amer) 45.9 BUN/Creatinine Ratio 15.9 (10-20) Glucose 232 H (70-99) mg/dl POC Glucose (70-99) mg/dl Calcium 9.1 (8.5-10.1) mg/dl Magnesium 1.7 L (1.8-2.4) mg/dl Total Bilirubin 0.7 (0.2-1) mg/dl AST 17 (15-37) U/L ALT 23 (12-78) U/L Alkaline Phosphatase 48 (45-117) U/L Troponin I < 0.015 (0-0.045) ng/ml Total Protein 7.8 (6.4-8.2) gm/dl Albumin 3.7 (3.4-5.0) gm/dl Globulin 4.1 H (2.5-4.0) gm/dl Albumin/Globulin Ratio 0.9 (0.9-2) Imaging Data Radiologist's Impression: [facility], [place] [phone] CT Scan Report Patient: KASSANDRA REDDYit Date: 03/27/20 MR#: [id number]: [address] [facility] Acct ID:[id number]: Date: [address] Zip: [place] [address] Age: 74Location: ED Sex: M Room/Bed: Att Phy:Diagnosis: VOMITING, ABD PAIN Rebecca Phy: Lisbeth Huggins, MDService Date: 03/27/20 Fam Phy:Interpreting Phy: Alfred Rao MD Admit Phy: Ordering Phy: Cam Atkinson MD cc: ~ CT head/brain wo con CT DOSE: 537.48 mGy.cm HISTORY: Mental status change Stroke evaluation TECHNIQUE: Multiaxial CT images of the head were performed without the use of intravenous contrast. A dose lowering technique was utilized adhering to the principles of ALARA. Comparison: None. Findings: The paranasal sinuses and mastoid air cells are clear. Possible small subacute left frontal infarct. Density characteristics of the cerebellar as well as cerebral hemispheres are otherwise unremarkable. Ventricular system is midline. There is no evidence for acute intracranial hemorrhage. Impression: Small left frontal lobe infarct, possibly subacute to chronic although old images are not available for comparison. Otherwise negative study. ACT 112: Negative or not required by law. The above report was generated using voice recognition software. It may contain grammatical, syntax or spelling errors. Electronically signed by: Alfred Rao M.D. 03/27/2020 6:32 PM Dictated: 03/27/201830 Transcribed: 03/27/201830 [place], [place] [phone] CT Scan Report Patient: KASSANDRA REDDY EAdmpriya Date: 03/27/20 MR#: [id number]: [address] [facility] Acct ID:[id number]: Date: 1945[facility] Zip: [place] [address] Age: 74Location: ED Sex: M Room/Bed: Att Phy:Diagnosis: VOMITING, ABD PAIN Rebecca Phy: Lisbeth Huggins, MDService Date: 03/27/20 Fam Phy:Interpreting Phy: Alfred Rao MD Admit Phy: Ordering Phy: Cam Atkinson MD cc: ~ CT angio head w con HISTORY: Mental status change Stroke evaluation TECHNIQUE: Multiaxial CT angiography of the head was performed IV contrast: 120 cc nonionic Maximum intensity projection images were also obtained. A dose lowering technique was utilized adhering to the principles of ALARA. COMPARISON: None FINDINGS: Evaluation of the intracranial vasculature demonstrates anterior and middle cerebral vasculature to be unremarkable. The right vertebral artery is small in caliber with evidence for distal stenotic change. There are findings of mild to moderate multifocal narrowing of the posterior cerebral circulation. A high grade or critical stenosis is not seen. IMPRESSION: 1. No evidence for a critical stenotic process of the intracranial vasculature. 2. Mild to moderate multifocal narrowing of the components of the posterior cerebral circulation exam with no major critical stenosis. 3. High degree of narrowing of the distal right vertebral artery. ACT 112: Negative or not required by law. The above report was generated using voice recognition software. It may contain grammatical, syntax or spelling errors. Electronically signed by: Alfred Rao M.D. 03/27/2020 7:01 PM Dictated: 03/27/201857 Transcribed: 03/27/201857 [place], [place] [phone] CT Scan Report Patient: KASSANDRA REDDY EAdmit Date: 03/27/20 MR#: [id number]: [address] [facility] Acct ID:[id number]: Date: 1945[facility] Zip: [place] [address] Age: 74Location: ED Sex: M Room/Bed: Att Phy:Diagnosis: VOMITING, ABD PAIN Rebecca Phy: Lisbeth Huggins MDService Date: 03/27/20 Fam Phy:Interpreting Phy: Alfred Rao MD Admit Phy: Ordering Phy: Cam Atkinson MD cc: ~ CT angio neck with con HISTORY: Mental status change Stroke evaluation TECHNIQUE: Multiaxial CT angiography of the neck was performed IV contrast: 115 cc nonionic All measurements were calculated based on NASCET criteria. Maximum intensity projection images were also obtained. A dose lowering technique was utilized adhering to the principles of ALARA. COMPARISON STUDY: Carotid Doppler 03/20/2019 FINDINGS: Considerable plaque formation at the carotid bifurcations bilaterally. 50% narrowing right carotid bifurcation and proximal right internal carotid artery. 50% narrowing origin left internal carotid artery. Suggestion of a small focus of dissection transaxial image 201. This may be associated with a small anterior superficial ulcerative plaque. The vertebral basilar system demonstrates multifocal 70-80 narrowing of the left vertebral artery. This is at its origin and at the level of the C7 vertebral body. The right vertebral shows moderate multifocal atherosclerotic narrowing foci. It is small in caliber compared to the left presumably on a congenital basis. There is a high degree of the distal right vertebral stenotic change. IMPRESSION: 1. Considerable plaque formation bilaterally involving vertebral as well as carotid systems. 2. 50% narrowing right carotid bifurcation and proximal right internal carotid artery. 3. 50 % origin left internal carotid artery with a small focal area of what is potentially dissection transaxial image 201. 4. Possible small associated anterior superficial ulcerative plaque. 5. Multifocal moderate to high degree of stenotic change of the vertebral v essels bilaterally. ACT 112: Negative or not required by law. The above report was generated using voice recognition software. It may contain grammatical, syntax or spelling errors. Electronically signed by: Alfred Rao M.D. 03/27/2020 6:57 PM Dictated: 03/27/201851 Transcribed: 03/27/201851 [place], [place] [phone] XRay Report Patient: KASSANDRA REDDY EAdmit Date: 03/27/20 MR#: [id number]: [address] [facility] Acct ID:[id number]: Date: 1945[facility] Zip: [place] [address] Age: 74Location: ED Sex: M Room/Bed: Att Phy:Diagnosis: VOMITING, ABD PAIN Rebecca Phy: Lisbeth Huggins MDService Date: 03/27/20 Fam Phy:Interpreting Phy: Alfred Rao MD Admit Phy: Ordering Phy: Cam Atkinson MD cc: ~ XR chest 1V portable CLINICAL HISTORY: Pt c/o severe dizziness dyspnea COMPARISON STUDY: No previous studies for comparison. FINDINGS: Mild interstitial prominence left mid to lower lung. Lungs otherwise are clear. No focal or consolidative infiltrates. Diaphragms are smooth. IMPRESSION: Mild left hemithoracic parenchymal interstitial prominence. Otherwise negative chest. ACT 112: Negative or not required by law. The above report was generated using voice recognition software. It may contain grammatical, syntax or spelling errors. Electronically signed by: Alfred Rao M.D. 03/27/2020 7:02 PM Dictated: 03/27/201900 Transcribed: 03/27/201900 ECG Data Attestation: I personally reviewed and interpreted this ECG as follows: Indication: other (dizziness) Rate (beats per minute): 88 Rhythm: normal sinus Findings: + other (QTc 471); no ST depression and no ST elevation Comparison ECG Date: from (05/10/2010) Blood Pressure Blood Pressure Findings: Elevated blood pressure Blood Pressure Disposition: elevated BP felt to be situational MDM Narrative This is a 74-year-old male who presents emergency department extremely dizzy. The patient is on Coumadin. A stroke alert was initiated due to the patient's known vertebrobasilar deficiency. The patient was given magnesium here in the emergency department. He was sent for CAT scan of the head as well as CTA of the head and neck. CAT scan of the head is concerning for a subacute stroke. Patient was also given Solu-Medrol as well as Benadryl and Pepcid in preparation for the CTA. Based on the new finding of stroke I do feel that the patient should be admitted to the hospital. I did discuss the case with the hospitalist service who did agree to admit the patient. Patient and are in agreement with the treatment plan. The patient is not a candidate for TPA as his symptoms have been ongoing for 6 hours and he is also on Coumadin. Patient was seen and evaluated as above in room A1. Review was performed of nursing notes and vital signs. I did review pertinent previous visits and patient history. After obtaining a thorough history and physical examination the above work up was performed. An order was placed for continuous cardiac monitoring. The monitor shows a rate of 64 with Normal Sinus rhythm. The patient was evaluated during the global COVID-19 pandemic, and that diagnosis was suspected/considered upon their initial presentation. Their evaluation, treatment and testing was consistent with current guidelines for patients who present with complaints or symptoms that may be related to COVID- 19. Impression & Plan Dizziness, Acute CVA (cerebrovascular accident) Discharge Plan Visit Data *Final* Discharge Date/Time: 03/27/20 21:23 Chief Complaint: Abdominal Pain Stated Complaint: VOMITING, ABD PAIN ED Provider: Cam Atkinson Discharge Problem: Dizziness, Acute CVA (cerebrovascular accident) Patient Disposition: Admitted As Inpatient Discharge Instructions Interventions: ED Discharge Assessment Last Done: 03/27/20 21:23
--- NOTE | 2020-03-28 06:03 | XRay Report ---
XR orbits for MRI HISTORY: pre-MRI screening. COMPARISON: None. FINDINGS: There are no radiopaque foreign bodies identified within the orbits. IMPRESSION: No radiopaque foreign bodies identified within the orbits. ACT 112: Negative or not required by law. The above report was generated using voice recognition software. It may contain grammatical, syntax or spelling errors. Electronically signed by: Alfred Rao M.D. 03/28/2020 6:02 AM
--- NOTE | 2020-03-28 06:28 | Magnetic Resonance Report ---
MR brain wo con HISTORY: Mental status change CVA TECHNIQUE: Multiplanar multisequence MRI of the brain was performed without the use of contrast. COMPARISON STUDY: None. FINDINGS: There are no areas of restricted diffusion to suggest acute infarction. The midline structu res are intact. The paranasal sinuses are clear. The mastoid air cells are clear. The ventricles and sulci are within normal limits for age. There is no mass, hematoma, midline shift. The major vascular flow-voids at the skull base are well maintained. There are several old cerebellar as well as cerebral infarct. Diffusion images show no evidence for a n acute ischemic process. There is considerable chronic small vessel change throughout the cerebellar as well as cerebral hemis pheres. IMPRESSION: 1. No evidence for an acute ischemic event. 2. Age-related atrophy and chronic small vessel change. ACT 112: Negative or not required by law. The above report was generated using voice recognition software. It may contain grammatical, syntax or spelling errors. Electronically signed by: Alfred Rao M.D. 03/28/2020 6:27 AM
[2020-03-28 06:30] LABS: Hematocrit (blood only) 31.4 % (42-52); Hemoglobin 10.3 g/dL (14.0-18.0); Mean Corpuscular Hgb Conc 32.8 g/dL (32-36); Mean Corpuscular Volume 97.5 fL (80-100); RDW Coefficient of Variation 15.1 % (11.5-14.5); RDW Standard Deviation 53.9 fL (36.4-46.3); Red Blood Count 3.22 M/uL (4.7-6.1); White Blood Count 3.24 K/uL (4.8-10.8)
[2020-03-28 06:39] LABS: INR 2.1 (0.9-1.1); Prothrombin Time 20.9 Seconds (9.0-12.0)
[2020-03-28 06:54] LABS: Mean Platelet Volume 11.5 fL (7.4-10.4); Platelet Count 62 K/uL (130-400)
[2020-03-28 06:58] LABS: BUN Creatinine Ratio 17.5 (10-20); Calcium 8.6 mg/dl (8.5-10.1); Creatinine Clr Calc Pharmacy 45.4 ml/min; Est GFR (African American) 54.5; Potassium 5.4 mmol/L (3.5-5.1)
[2020-03-28 07:00] LABS: Immature Granulocytes # (auto) 0.01 K/uL (0.00-0.02); Immature Granulocytes % (auto) 0.3 %; Lymphocytes # (auto) 0.69 K/uL (1.2-3.4); Lymphocytes % (auto) 21.3 %; Monocytes # (auto) 0.02 K/uL (0.11-0.59); Monocytes % (auto) 0.6 %; Neutrophils # (auto) 2.52 K/uL (1.4-6.5); Neutrophils % (auto) 77.8 %
--- NOTE | 2020-03-28 07:13 | Billing Data ---
Date of Service March 27, 2020 Coding Level of Care Code 70143 Initial Inpt Care Lvl 3
[2020-03-28] MEDS ORDERED: ACETAMINOPHEN 325 MG TAB PO SCH (09:00)
[2020-03-28] MEDS ORDERED: VITAMIN B COMPLEX TAB PO SCH (09:00)
[2020-03-28] MEDS ORDERED: ASCORBIC ACID 500 MG TAB PO SCH (09:00)
[2020-03-28] MEDS ORDERED: MULTIVITAMIN TAB PO SCH (09:00)
[2020-03-28] MEDS ORDERED: FERROUS SULFATE 325 MG TAB PO SCH (09:00)
[2020-03-28] MEDS ORDERED: LOPERAMIDE HCL 2 MG CAP PO SCH (09:00)
[2020-03-28] MEDS ORDERED: MAGNESIUM OXIDE 400 MG TAB PO SCH (09:00)
[2020-03-28] MEDS ORDERED: CHOLECALCIFEROL 1,000 UNITS 25 MCG TAB PO SCH (09:00)
[2020-03-28] MEDS ORDERED: PANTOprazole 40 MG TAB PO SCH (09:00)
[2020-03-28] MEDS ORDERED: ATORVASTATIN 20 MG TAB PO SCH (09:00)
[2020-03-28] MEDS: SODIUM CHLORIDE 0.9% 1000ML 1,000 ML IV SCH (09:21)
[2020-03-28] MEDS: TAMSULOSIN HCL 0.4 MG CAP PO SCH (09:23)
[2020-03-28] MEDS: INSULIN ASPART 100 UNITS/ML 3 ML PEN SC SCH ×2 (09:26→12:09)
--- NOTE | 2020-03-28 10:45 | Neurology Consultation ---
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 on 03/27/20 after acute onset of dizziness a/w N/V, gait imbalance and mild headache. # Acute onset dizziness: no new stroke noted on MRI, does have chronic left cerebellar infarct which could cause recrudescence of symptoms in the setting of stress, sleep deprivation or infection. Given positive [place]-Halpike and ongoing symptoms with unchanged MRI brain, suspect that this is a peripheral process (most closely related to BPPV, cannot rule out Meniere's disease as he has known hearing loss that he reports has been variable recently, worsening tinnitus). - recommend screening for infection with UA, consider blood culture if any concern for bacteremia as he is pancytopenic to r/o stroke recrudescence - ENT consult (can be as an outpatient) - PT eval for [place]-Halpike and Eppley maneuver if indicated - referral to vestibular rehab - defer medication treatment to ENT # H/o strokes: Factor 5 Leiden does not increase the risk of strokes in adults, does increase risk of VTE and stroke in kids. Not sure why he is on warfarin unless he has a h/o VTE as he does not appear to have a h/o Afib necessitating the need for AC for stroke prevention. Would consider transitioning to DOAC as there is better data for stroke prevention anyhow (if AFib hx) or just aspirin vs plavix; would need to balance risk given known esophageal varices. Thank you for this interesting consult. Plan of care discussed with primary team. Please call or text with questions. 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 on 03/27/20 after acute onset of dizziness a/w N/V, gait imbalance and mild headache. [employer] ~ 12pm on 03/27/20. He reports that he was in his normal state of health until around lunchtime yesterday when he bared down to have a BM and noted acute onset of dizziness when he stood up from the toilet. Describes the dizziness as more of a sense of imbalance, denies true vertigo or lightheadedness. He noticed that he would veer in the opposite direction than the one he was trying to head in (variable veering). He also reports having 4-5 episodes of emesis that started shortly after dizziness. Symptoms have slowly improved since they started yesterday, but if he moves in any direction or stands up and walks around, he will notice recurrence of dizzy sensation, gait unsteadiness and nausea. No clear change of symptoms with simple head turns or rolling over in bed, prefers to sit still though. Does endorse having increased tinnitus the last 2 weeks and lack of ear wax on his hearing aids the last few days which was worrying him. Denies any recent infection, injury or change in medications. Denies any rash c/w shingles on his face or near his ear (has h/o shingles that affected his left ribs, none recently). Denies any other neurological changes, including numbness, tingling, weakness or vision changes. Denies any missed doses of aspirin or warfarin. In the ED, pt was afebrile, BP 197/81, HR 91, RR 19, satting 98% on room air. Labs notable for WBC 2.72, Hb 11.5, Plts 75, Na 141, K 4.8, BUN 24, Cr 1.5, glucose 232, INR 2.3, LFTs WNL, troponin negative. Imaging independently reviewed. CTH shows chronic infarcts in the left frontal and left cerebellum, + SVID, no hemorrhage or new hypodensity. CTA H&N shows moderate bilateral carotid stenosis at the bifurcations with complex plaques, high grade stenosis of the right vertebral artery at the origin with diminutive caliber throughout its course (likely congenital) with either termination in the left PICA or miniscule branch terminating in the basilar, diffuse atherosclerosis extra and intracranially, and no LVO or aneurysm noted. MRI brain shows no acute infarct, chronic infarcts in left frontal and left cerebellum, +moderate SVID and mild generalized atrophy. On examination today, he was noted to have a positive [place]-Halpike. Remainder of examination unremarkable. Allergies Allergy/AdvReac Type Severity Reaction Status Date / Time bee venom protein (honey bee) Allergy Severe Anaphylaxis Verified 03/27/20 20:09 Iodinated Contrast Media Allergy Severe Anaphylaxis Verified 03/27/20 19:47 [Iodinated Contrast- Oral and IV Dye] meperidine AdvReac Intermediate Hallucinati Verified 03/27/20 19:47 ng Home Medications Home Medications Medication Instructions Recorded Confirmed Type Osteo Bi-Flex Triple Strength 1 tab PO BID 09/19/18 03/27/20 History acetaminophen 650 mg PO QAM 09/19/18 03/27/20 History aspirin 325 mg PO HS 09/19/18 03/27/20 History ferrous sulfate [Iron (ferrous 325 mg PO BID 09/19/18 03/27/20 History sulfate)] gabapentin 300 mg PO HS 09/19/18 03/27/20 History glipizide 10 mg PO BID 09/19/18 03/27/20 History losartan 50 mg PO QAM 09/19/18 03/27/20 History magnesium oxide 400 mg PO QAM 09/19/18 03/27/20 History metformin 1,000 mg PO BID 09/19/18 03/27/20 History metoprolol tartrate 12.5 mg PO BID 09/19/18 03/27/20 History multivitamin 1 tab PO QAM 09/19/18 03/27/20 History pantoprazole 40 mg PO QAM 09/19/18 03/27/20 History tamsulosin 0.4 mg PO BID 09/19/18 03/27/20 History vitamin B complex 1 tab PO QAM 09/19/18 03/27/20 History warfarin 2.5 mg PO 2XWK 09/19/18 03/27/20 History warfarin 5 mg PO 5XWK 09/19/18 03/27/20 History alogliptin 12.5 mg tablet 12.5 mg PO QAM #90 tab 05/20/19 03/27/20 Rx ascorbic acid (vitamin C) [Vitamin 500 mg PO QAM 03/27/20 03/27/20 History C] cholecalciferol (vitamin D3) 125 mcg PO QAM 03/27/20 03/27/20 History [Vitamin D3] cinnamon bark [Cinnamon] 500 mg PO BID 03/27/20 03/27/20 History epinephrine [EpiPen] 0.3 mg IM DIRECTED PRN 03/27/20 03/27/20 History loperamide 2 mg PO QAM 03/27/20 03/27/20 History loperamide See Rx Instructions .ROUTE 03/27/20 03/27/20 History .COMPLEX PRN Patient History Medical History Arthritis (Chronic) Carotid stenosis, bilateral (Chronic) Cirrhosis, nonalcoholic (Chronic) Colon polyps (Chronic) Compression fracture of T11 vertebra Diabetes mellitus (Chronic) Factor V Leiden mutation (Chronic) Hearing deficit History of gastric ulcer History of stroke Hyperlipidemia (Chronic) Hypertension (Chronic) Kidney stones Pancytopenia, acquired (Chronic) Prostate cancer (Chronic) Spinal stenosis Urge incontinence of urine (Chronic) Vertebral artery stenosis (Chronic) Surgical History History of bilateral cataract extraction History of biopsy of bladder benign History of colonoscopy History of esophagogastroduodenoscopy (EGD) History of lithotripsy x3 History of prostate biopsy malignant History of tonsillectomy and adenoidectomy History of tooth extraction Hx of vasectomy Status post cystoscopy with ureteral stent placement Family History Mother Family history of diabetes mellitus Grandmother (Maternal) Family history of diabetes mellitus Father Prostate cancer Myocardial infarction Other Heart disease Hypertension Nephrolithiasis Social History Preferred Language: O[place]i Communication Ability: Effective [employer] Required: No Beliefs That Will Affect Care: None marital status: Current Living Situation: Spouse Other Information That Helps Us Care for You: No Feels Safe at Home: Yes Safety Concerns: Feels Safe At This Time Smoking Status: Former smoker Do You Dip or Chew Tobacco: No ; Second Hand Exp osure: No ; Hx Alcohol Use: No Hx Substance Use: No Review of Systems Review of Systems: 14 point review of systems completed and negative except as in HPI. Exam (Neuro) Physical Exam: General Exam: GEN: NAD, sitting/lying down in examination bed. HEENT: No conjunctival injection, no rhinorrhea. CV: RRR on monitor, no significant edema. PULM: Nonlabored respirations on room air. Neuro Exam: MS: Awake and Alert. Oriented to person, place, and date. Speech fluent and appropriate without dysarthria or paraphasic errors. Language intact including naming, comprehension, repetition. Cognition and memory grossly intact. Attention intact. No neglect. CN: Visual maldonado full. No extinction to double simultaneous stimuli. Unable to fully visualize fundi on fundoscopic exam. PERRLA OU. EOMI without nystagmus. Facial sensation intact to LT. Facial muscles full and symmetric. Hearing intact to finger rub bilaterally. Uvula midline with symmetric palatal elevation. Shoulder shrug normal. Tongue midline. Head impulse test normal. MOTOR: Normal bulk and tone. No pronator drift. BUE strength 5/5 at deltoids, biceps, triceps, wrist flexors and extensors, and finger flexors bilaterally. BLE strength 5/5 at iliopsoas, hamstrings, quadriceps, tibialis anterior, and gastrocnemius bilaterally. REFLEXES: 1+ at biceps, triceps, brachioradialis, 1+ patella, and absent Achilles bilaterally. Flexor plantar responses bilaterally. SENSORY: Intact to LT/vibration throughout (except diminished in LLE up to the knee), no extinction to double simultaneous stimuli. COORDINATION: Mild dysmetria on [id number] and foot mirroring. Normal Ezekiel bilaterally. GAIT: Deferred due to physical status. NIH STROKE SCALE 1A. Level of Consciousness (0-3) = 0 1B. LOC Questions (0-2) = 0 1C. LOC Commands (0-2) = 0 2. Best Horizontal Gaze (0-2) = 0 3. Visual Maldonado (0-3) = 0 4. Facial Palsy (0-3) = 0 5. Motor Arm Right (0-4) = 0 Left (0-4) = 0 6. Motor Leg Right (0-4) = 0 Left (0-4) = 0 7. Limb Ataxia (0-2) = 1 8. Sensory (0-2) = 0 9. Best Language (0-3) = 0 10. Dysarthria (0-2) = 0 11. Extinction and Inattention (0-2) = 0 NIHSS TOTAL = 1 (from prior left cerebellar stroke) Results & Data ([facility]) Vital Signs (Past 12 Hours) Vital Signs Temp Pulse Pulse Resp BP Pulse Ox 03/28/20 08:00 36.8 C 74 20 143/65 H 95 03/28/20 03:44 36.8 C 77 15 135/71 97 03/28/20 00:00 83 03/27/20 23:14 36.6 C 80 18 175/77 H 96 PG Care Time/CCT Total # of Minutes Spent Total Time Spent with Patient: Total time spent is greater than 50% in coordination of care (as documented) at patient's floor/unit and/or counseling patient: Coding Level of Care Code 65775 Initial Inpt Care Lvl 3 Diagnoses Dizziness R42 Carotid stenosis, bilateral I65.23 Vertebral artery stenosis I65.09 Hypertension I10 Hyperlipidemia E78.5 Factor V Leiden mutation D68.51 Diabetes mellitus E11.9 Cirrhosis, nonalcoholic K74.60
--- NOTE | 2020-03-28 12:26 | Electrocardiogram Report ---
Test Reason : Blood Pressure : / mmHG Vent. Rate : 088 BPM Atrial Rate : 088 BPM P-R Int : 186 ms QRS Dur : 114 ms QT Int : 390 ms P-R-T Axes : 056 061 059 degrees QTc Int : 471 ms Normal sinus rhythm Normal ECG When compared with ECG of 10-MAY-2010 12:00, Vent. rate has increased BY 40 BPM QT has lengthened Confirmed by Cristopher Arriaga ([id number]) on 03/28/2020 12:25:47 PM Referred By: REFERRED SELF Confirmed By:Alexander Arriaga
--- NOTE | 2020-03-28 13:55 | Discharge Summary ---
Date of Service March 28, 2020 Admission HPI Per Admitting Provider Vlad Etienne is a 74 year old man with a past medical history significant for 3 prior ischemic strokes, Factor V Leiden on Warfarin, Pancytopenia, DMII, Hypertension, JONES who presents with a 7 hour history of dizziness falls and nausea. At around noon he was sitting on his toilet when he felt suddently dizzy. He does not feel like the room was spinning but rather that he was off balance and "right felt like left".He fell off of his toilet, vomited several times and tried to get up and make his way back to his bed. He suffered three more falls en route and finally got to his bed. He denies any loss of conscious ness or hitting his head during any of these falls. Sometime later he told his what happened and after some bargaining back and forth he agreed to let her call an ambulance. He's vomited now about four times he tells me. On presentation to ED he was found to have vitals WNL apart from some hypertension and be in his usual state of health except for continued dizziness that is somewhat better than it was earlier. CT of the head showing possible subacute stroke of the left frontal lobe CTA of the head and neck showing considerable plaque formation in carotid and vertebral systems bilaterally, 50% stenosis of left carotid with what could be a small area of dissection, Possible small associated anterior superficial ulcerative plaque and Multifocal moderate to high degree of stenotic change of the vertebral vessels bilaterally. Orbit X ray and MRI brain pending. labwork was significant for low WBC of 2.72, hemoglobin of 11.5, and platelets of 75. INR was 2.3 Patient was slightly hypomagnesemic 1.7 and had an elevated creatinine near his baseline of 1.52. He was feeling very cold and shivering but he tells me he gets like this all the time. He denies any other recent symptoms other than impacted ear wax in his left ear. Denies fevers, chills, sweats, fatigue, headache, shortness of breath, chest pain, nausea or vomiting before noon. He has not had any recent infections or sick contacts that he is aware of. Admission Exam Per Admitting Provider Physical Exam: Constitutional: Constitutional: WD/WN, vitals as above no acute distress Eyes: PERRL, conjunctivae normal, anicteric sclerae ENMT: external ear and nose normal, oropharynx normal Respiratory: normal respiratory effort, lungs clear to auscultation Cardiovascular: RRR, no murmur, no edema Extremities: no calf tenderness and no pedal edema Gastrointestinal (Abdomen): normal bowel sounds, soft, nontender, no hepatosplenomegaly Skin: no rashes, warm and dry Neurologic: patellar DTR's 2+ bilat, sensation intact CN's II-XI intact bilaterally Cranial Nerves II-XII intact bilaterally, patient with some asymmetry in eye opening at rest bilaterally but patient and do not seem to think it's very abnormal for him and he has had surgery on his eyes in the past for this. Principal Diagnosis Vertigo Discharge Exam General: A&Ox3. NAD. Cooperative. HEENT: Atraumatic, normocephalic. Right ear clear, TM without er ythema/perforation/effusion/injection. Left ear with small amount of earwax in inferior border of canal, top two thirds of TM easily visualized and intact without erythema, perforation, or injection. Pulm: CTAB A&P. -wheezes, -rales, -rhonchi. Symmetrical chest rise. No increase work of breathing. No respiratory distress. Cardiac: RRR, -mrg. Radial pulses intact and symmetrical. Abdominal: Nontender, nondistended, soft. BS present. CN II: Visual melgar are full to confrontation. Pupils are equal and react to light and accomidation. Visual acuity grossly intact. CN III, IV, : At primary gaze, there is no eye deviation. EoM intact without nystagmus. No visual field cuts. CN VII: No facial asymmetry, full strength to eyebrow raise, smile, eye close, and cheek puff. CN VII: Hearing is grossly intact. CN IX, X: Palate elevates symmetrically. Phonation is normal without dysarthria. CN XI: Head turning and shoulder shrug are intact CN XII: Tongue protrudes midline. Reflexes: Patellar, Achilles, Brachial DTR 2+ Bilaterally Sensory: Light touch intact in upper and low extremities without deficit or asymmetry. Strength: RUE: elbow flexion/extension, finger flexion/extension, biology specimen technician strength, interosseous 5/5 LUE: elbow flexion/extension, finger flexion/extension, biology specimen technician strength, interosseous 5/5 RLE: ankle plantar flexion/dorsiflexion 5/5 LLE: ankle plantar flexion/dorsiflexion 5/5 Discharge Data Allergies Allergy/AdvReac Type Severity Reaction Status Date / Time bee venom protein (honey bee) Allergy Severe Anaphylaxis Verified 03/27/20 20:09 Iodinated Contrast Media Allergy Severe Anaphylaxis Verified 03/27/20 19:47 [Iodinated Contrast- Oral and IV Dye] meperidine AdvReac Intermediate Hallucinati Verified 03/27/20 19:47 ng Consultations 03/27/20 19:09 ED Decision to Admit Stat 03/27/20 19:53 Consult Case Management - Discharge Planning Routine Consult Neurology Routine Ordered Studies 03/27/20 18:16 CT angio head w con Stat CT angio neck with con Stat CT head/brain wo con Stat 03/27/20 18:47 MR brain wo con Stat Hospital Course (1) Dizziness: Vlad is a 74-year-old male with a past medical history of CVA, bilateral carotid stenosis, vertebral artery stenosis with history of mild vertebrobasilar insufficiency, prostate cancer, factor V Leiden, diabetes mellitus, nonalcoholic cirrhosis, and arthritis who presented to the hospital with several days of dizziness and poor balance and an episode of emesis with patient concern for recurrent stroke. His evaluation for stroke was negative, and his symptoms were most consistent with Vertigo. To do as outpatient: 1. Outpatient vestibular rehab 2. ENT referral follow-up 3. Evaluate as warfarin versus DOAC candidate Vertigo 2/2 BPPV versus Mnire's Vlad endorsed up to 2 weeks of bilateral left greater than right hearing change, intermittent ringing in his ears, and feeling extremely off balance intermittently. He notes his symptoms were worse when getting off the toilet and sometimes when turning. He did not experience any symptoms of syncope or presyncope. He has had prior strokes, is on aspirin/warfarin therapy, and was concerned that his symptoms could be due to additional strokes. On admission CThead showed a small left frontal area potentially concerning for infarct, fo llow-up MRIbrain showed no acute findings and no evidence of acute stroke. He was noted to have evidence of an old cerebellar stroke, and recrudescence of old deficits under illness/stress may contribute to his symptoms. CTA of the head and neck showed diffuse plaque, 50% stenosis of the right carotid bifurcation and left internal carotid, and chronic vertebral stenosis without acute change or occlusion. His EKG showed a normal sinus rhythm. He was observed overnight and neurology was consulted. On physical exam he had a positive Vannesa-Hallpike consistent with vertigo. It was recommended that he be seen by ear nose and throat as an outpatient, and to have vestibular rehab as outpatient. Pharmacologic treatment of vertigo was deferred, differential includes BPPV and Mnire's disease. Referral to home health services with vestibular rehab was being organized by case management at time of discharge. He was discharged with follow-up to his PCP, and pending appointments for ENT and vestibular rehab. He was not having any sensory, strength, speech, or vision deficits at time of discharge. History of stroke on antiplatelet and anticoagulation therapy Patient has a history of stroke on aspirin and warfarin therapy. He has a history of factor V Leiden, neurology noted that this does not increase the risk of stroke in adults but does increase the risk of VTE and stroke in children. Suggested that he be considered as outpatient as a Doac candidate if being used for stroke prevention, patient without known history of A. fib. This was discussed with patient, and he was discharged to further follow-up with his PCP without acute change in his pharmacologic treatment. Hypertension His prior to admission metoprolol and losartan were was continued, and he was allowed permissive hyper pretension while stroke eval was being completed. Adequate blood pressure control during admission, no changes to antihypertensives were made. Type 2 diabetes mellitus His prior to admission anti-glycemic's including metformin and glipizide were held and converted to sliding scale insulin. He had adequate glycemic control during admission, no changes were made to his diabetes regimen on discharge. Nonalcoholic cirrhosis with thrombocytopenia Vlad has a history of nonalcoholic cirrhosis and pancytopenia which has been evaluated in the past. He has had a bone marrow biopsy which shows intact cell lines, and his platelets have been intermittently low thought to be due to a combination of this mild pancytopenia with some splenic sequestration. He did not experience any clinically significant bleeding during admission, and platelets remained greater than 50,000. He did not receive any treatments for thrombocytopenia or other treatments for his cirrhosis during admission, and did not experience any hepatic decompensation during admission. (2) Carotid stenosis, bilateral: (3) Vertebral artery stenosis: (4) Pancytopenia, acquired: (5) Hypertension: (6) Hyperlipidemia: (7) Factor V Leiden mutation: (8) Diabetes mellitus: (9) Cirrhosis, nonalcoholic: (10) Arthritis: Total Time Total Time Spent Total Time Spent (In Minutes): <30 Discharge Plan Discharge Items Patient Disposition: Home - Self-Care Reason For Visit: STROKE Discharge Diagnosis: Vertigo Activity: Per Instructions section Non-emergency contact: Primary Care Provider Call non-emergency contact if: you have any medication questions Follow-up/Referrals: Lisbeth Huggins MD [Primary Care Provider] - Diet: Carb Consistent or DM2 Addtl Attending Provider Instructions: You were seen in the hospital for dizziness, falls, and episodes of vomiting. Your MRI did not show evidence of a new or recent stroke, there was some evidence of a small old stroke. Imaging of the blood vessels in your head and neck showed chronic narrowing without new/sudden blockage. Your physical exam and assessment by Neurology suggests your symptoms are due to vertigo. You have not been prescribed any new medications or had medication changes at this time. A followup appointment is being scheduled for you with vestibular rehab services. You should receive a call to confirm this appointment within 2 buisiness days. If you do not receive a call regarding this referral, please call to discuss this referral further with your primary care provider. A follow-up appointment is being scheduled for you with the ear nose and throat physician. You should receive a call to confirm this appointment within 2 business days. If you do not receive a call, or need to cancel/change your appointment, please call their office at . A followup appointment is being scheduled for you with Dr. Huggins, your primary care provider. You should be seen seen within 1 week. You should receive a call to confirm this appointment. If you do not receive a call within 48 hours to confirm this appointment, or need to change this appointment, please call the provider's office at [phone]. Vertigo can be episodic, and you may experience sudden dizziness especially when standing or turning corners. If you develop any new or worsening symptoms including fever, chills, sweats, chest pain, chest pressure, difficulty breathing, uncontrolled nausea/vomiting, rash, wheezing, passing out or nearly passing out, bleeding, black/bloody bowel movements, or other new or concerning symptoms please call your primary care physician at [phone], or call 911 for re-evaluation in the emergency department if you are very concerned. Pending Studies at Discharge: No Stand-Alone Forms: My [facility], Smoking Cessation Medications and DC Order Prescriptions: Continued alogliptin 12.5 mg tablet 12.5 mg PO QAM Qty: 90 RF: 3 gabapentin 300 mg Capsule 300 mg PO HS RF: 0 multivitamin Tablet 1 tab PO QAM RF: 0 losartan 50 mg Tablet 50 mg PO QAM RF: 0 aspirin 325 mg Tablet 325 mg PO HS RF: 0 glipizide 10 mg Tablet 10 mg PO BID RF: 0 acetaminophen 650 mg Tablet Extended Release 650 mg PO QAM RF: 0 tamsulosin 0.4 mg Capsule 0.4 mg PO BID RF: 0 pantoprazole 40 mg Tablet,Delayed Release (Dr/Ec) 40 mg PO QAM RF: 0 ferrous sulfate [Iron (ferrous sulfate)] 325 mg (65 mg iron) Tablet 325 mg PO BID RF: 0 metformin 1,000 mg Tablet 1,000 mg PO BID RF: 0 warfarin 5 mg Tablet 5 mg PO 5XWK RF: 0 warfarin 5 mg Tablet 2.5 mg PO 2XWK RF: 0 vitamin B complex Tablet 1 tab PO QAM RF: 0 metoprolol tartrate 25 mg Tablet 12.5 mg PO BID RF: 0 magnesium oxide 400 mg Capsule 400 mg PO QAM RF: 0 Osteo Bi-Flex Triple Strength 750 mg-644 mg- 30 mg-1 mg Tablet 1 tab PO BID RF: 0 ascorbic acid (vitamin C) [Vitamin C] 500 mg Tablet 500 mg PO QAM RF: 0 cinnamon bark [Cinnamon] 500 mg Capsule 500 mg PO BID RF: 0 cholecalciferol (vitamin D3) [Vitamin D3] 125 mcg (5,000 unit) Tablet 125 mcg PO QAM RF: 0 loperamide 2 mg Tablet 2 mg PO QAM RF: 0 loperamide 2 mg Tablet See Rx Instructions .ROUTE .COMPLEX PRN (Reason: Diarrhea) RF: 0 epinephrine [EpiPen] 0.3 mg/0.3 mL Auto-Injector 0.3 mg IM DIRECTED PRN (Reason: Anaphylaxis) RF: 0 Discharge Orders: Discharge Order (Routine); Ordered 03/28/20 Ordered By: Brian Barron Admission Data Admit Date/Time: 03/27/20 20:36 Attending Provider: Tommy Bains Admit Provider: Oh Santos Primary Care Provider: Lisbeth Huggins Other Providers: Sherri Vera Christina R. Other Interventions: Discharge Summary Assessment (RN) Last Done: 03/28/20 15:27 Supervising Physician Co-Signing Physician Notes I personally examined the patient and verified all leon points of history and exam, discussed case, and agree with decision making with Dr Barron. feeling ok wants to go home. no new problems understands dx and plans vitals noted nad heent nc at mmm breathing unlabored no accessory muscles good effort skin no rashes no pallor or icterus BPV - stable/safe for home. outpt vestibular therapy. not an acute stroke/TIA otherwise as above Resident Activity Tracking Resident Involvement: Resident Care Provided Care Provided: Adult Hospital Medicine
[2020-03-28] MEDS ORDERED: STROKE PATIENT DISCHARGE STA (15:12)
--- NOTE | 2020-03-28 15:55 | Billing Data ---
Date of Service March 28, 2020 Coding Level of Care Code D/C Day Management <30 mins
[2020-03-28 15:58] LABS: Appearance Urine Clear (Clear); Bacteria Urine Automated Negative (Negative); Bilirubin Urine Negative (Negative); Blood Urine Negative (Negative); Cast Urine Automated 0 /lpf (0-5); Color Urine Yellow; Epithelial Cell Urine Auto 0-5 /lpf (0-5); Glucose Urine UA 1+ (Negative); Ketones Urine Negative (Negative); Leukocyte Esterase Urine Negative (Negative); Nitrite Urine Negative (Negative); Protein Urine 1+ (Negative); RBC Urine Automated 0-4 /hpf (0-4); Specific Gravity Urine 1.024 (1.000-1.030); Urobilinogen Urine Negative (Negative); WBC Urine Automated 0 /hpf (0-5)
[2020-03-28] MEDS ORDERED: WARFARIN SOD 2.5 MG TAB PO SCH (16:00)
[2020-03-29 07:24] LABS: Estimated Average Glucose 146 mg/dl; Hemoglobin A1C 6.7 % (4.5-5.6)
== END 2020-03-28 16:25 | disposition home health service (06) | DRG 149 ==
LOC: ED 18:02 → SUATTDRO 20:36 → 2S 20:36